=== PATIENT | male | born 1960 | race Caucasian/White ===

== ENCOUNTER 2017-01-11 06:46 | Emergency (ER) | END 2017-01-11 13:39 | disposition home or self-care (01) | DX: R20.0 Anesthesia of skin (principal); R40.2252 Coma scale, best verbal response, oriented, at arrival to emergency department; G62.9 Polyneuropathy, unspecified; I10 Essential (primary) hypertension; R93.7 Abnormal findings on diagnostic imaging of other parts of musculoskeletal system; R40.2142 Coma scale, eyes open, spontaneous, at arrival to emergency department; R40.2362 Coma scale, best motor response, obeys commands, at arrival to emergency department; R07.9 Chest pain, unspecified; Z87.891 Personal history of nicotine dependence | CPT/HCPCS: 36415; 70450; 71010; 72141; 72146; 80053; 80306; 80307; 83735; 84484; 85025; 85610; 85730; 93005; 96374; 99285; J2060 ==

== ENCOUNTER → 2017-02-01 | Outpatient (CLI) | payer BC ==
[~2017-02-01] MED LIST: AMLO5TAB4 PO; BENA10TA48 PO
[2017-02-01 09:19] LABS: BASOPHIL # 0.1 10^3/ul (0.0-0.1); BASOPHILS % 1.1 % (0.0-2.0); EOSINOPHILS # 0.1 10^3/ul (0.0-0.5); EOSINOPHILS % 1.5 % (0.0-7.0); HEMATOCRIT 47.5 % (42.0-52.0); HEMOGLOBIN 16.4 g/dl (14.0-18.0); LYMPHOCYTES # 1.6 10^3/ul (0.8-2.9); LYMPHOCYTES % 18.9 % (15.0-51.0); MEAN CORPUSCULAR HEMOGLOBIN 29.4 pg (29.0-33.0); MEAN CORPUSCULAR HGB CONC 34.5 g/dl (32.0-37.0); MEAN CORPUSCULAR VOLUME 85.3 fl (82.0-101.0); MEAN PLATELET VOLUME 9.4 fl (7.4-10.4); MONOCYTE # 0.5 10^3/ul (0.3-0.9); MONOCYTES % 6.2 % (0.0-11.0); NEUTROPHIL # 5.9 10^3/ul (1.6-7.5); NEUTROPHILS % 71.7 % (39.0-77.0); PLATELET COUNT 396 10^3/UL (140-415); RED BLOOD COUNT 5.57 10^6/ul (4.70-6.10); RED CELL DISTRIBUTION WIDTH 12.3 % (11.5-14.5); WHITE BLOOD COUNT 8.2 10^3/ul (4.8-10.8)
[2017-02-01 09:41] LABS: ALBUMIN/GLOBULIN RATIO 1.25; BILIRUBIN,INDIRECT 0.4 mg/dl (0-1.1); BILIRUBIN,TOTAL 0.4 mg/dl (0.2-1.3); CALCIUM 10.2 mg/dl (8.4-10.2); CREATININE 1.34 mg/dl (0.61-1.24)
[2017-02-01 09:50] LABS: POTASSIUM 5.7 mmol/L (3.5-5.1)
[2017-02-01 10:11] LABS: PROSTATE SPECIFIC ANTIGEN 70.1 ng/ml (0.0-4.0)
[2017-02-02 16:23] LABS: PSA, FREE 4.6 ng/mL
== END | disposition home or self-care (01) ==
LOC: LAB 08:15
PROVIDERS: ATTEND Urology
DX: R97.20 Elevated prostate specific antigen [PSA] (principal)
CPT/HCPCS: 80053; 84153; 84154; 85025

== ENCOUNTER → 2017-02-16 | Outpatient (CLI) | payer BC ==
--- NOTE | 2017-02-17 11:12 | RADRPT ---
PROCEDURE: Whole body bone scan study CLINICAL INDICATION: 56 -year-old patient with prostate cancer, for evaluation for skeletal metast ases. TECHNIQUE: Following the intravenous injection of 25.9 mCi of Tc-99m MDP, whole body anterior and posterior planar images were obtained along with spot views of the chest, abdomen and pelvis. COMPARISON: No prior bone scans are available for comparison. MRI of the cervical and thoracic spi ne dated January 11, 2017. FINDINGS: Slightly heterogeneous distribution of radionuclide is seen throughout the spine, which demonstrate a pattern most suggestive of degenerative changes. Mild symmetrical increased activity is also seen in both shoulders, which most likely represent dege nerative disease. No efinite abnormal areas of increased activity or asymmetries are visualized in the study and distr ibution of radionuclide is homogeneous in the skull, spine, rib cages, sternum, pelvis and visualize d portions of the upper and lower extremities. Of incidental note, there is no evidence of mass abnormalities of the kidneys. IMPRESSION: 1. No definite scintigraphic pattern to suggest the presence of skeletal metastases. 2. Likely degenerative changes of the spine and both shoulders. RPTAT: HH .Arti Zavaleta MD, Date Time Electronically viewed and signed by .Arti Zavaleta MD, on 02/17/2017 11:12 .L/
== END | disposition home or self-care (01) ==
LOC: NUC 16:29
PROVIDERS: ATTEND Internal Medicine Hematology & Oncology
DX: C61 Malignant neoplasm of prostate (principal)
CPT/HCPCS: 78306; A9503

== ENCOUNTER → 2017-05-10 | Outpatient (CLI) | payer BC ==
--- NOTE | 2017-05-10 15:31 | RADRPT ---
Echocardiogram Report Patient Name: DESIREE QUINTERO Gender: Male Date: 1960 Study Date: 10-May-2017 Application Penetration Tester: Yung Manriquez RDCS Location: EKG Ref. Physician: KEYON DANIELSON Quality: Adequate Procedures: Transthoracic echocardiogram with complete 2D, M-Mode, and doppler examination. Indications: Chest Pain, old [place]. 2D/M Mode Doppler Measurement Value Normal Ranges Measurement Value Normal Ranges LVIDd 2D 5.5 3.5 - 5.6 cm AV Peak Adelso 1.8 m/sec LVIDs 2D 3.6 2.1 - 4.1 cm AV Peak PG 13.0 mmHg LVPWd 2D 1.2 0.6 - 1.1 cm LVOT Peak PG 4.0 mmHg IVSd 2D 1.2 0.6 - 1.1 cm MV E Peak Adelso 5.6 m/sec AoR Diam 2D 2.8 2.0 - 3.7 cm MV A Peak Adelso 7.3 m/sec LA Dimen 2D 4.0 2.3 - 4.0 cm MV Decel Time 261 msec Lateral E` 8.7 m/sec Med E` Adelso 8.2 m/sec E/E` 6.4 TR Peak Adelso 2.6 m/sec TR Peak PG 27.0 mmHg RVSP 35.0 mmHg Findings Left Ventricle: Normal left ventricular systolic function. Normal left ventricular cavity size. Normal left ventricular wall thickness. Ejection fraction is visually estimated at 5560 %. Tissue Doppler/Mitral Doppler indices are consistent with impaired relaxation (Stage I diastolic dysfunction). Right Ventricle: Normal right ventricular size. Normal right ventricular systolic function. Left Atrium: The left atrium is normal in size. Right Atrium: The right atrium is normal in size. Mitral Valve: Normal appearance and function of the mitral valve with trace physiologic regurgitation. Aortic Valve: Normal appearance of the aortic valve. No significant aortic stenosis or insufficiency. Tricuspid Valve: Normal appearance of the tricuspid valve. Unable to obtain RVSP due to minimal presence of tricuspid regurgitation. Estimated peak PA systolic pressure mmHg. There is trace tricuspid regurgitation. Pulmonic Valve: Pulmonic valve not well visualized. There is trace pulmonic regurgitation. Pericardium: Normal pericardium with no significant pericardial effusion. Aorta: Normal aortic root. IVC: Normal size and normal respiratory collapse consistent with normal right atrial pressure. Conclusions Normal left ventricular systolic function. Normal left ventricular cavity size. Normal left ventricular wall thickness. Ejection fraction is visually estimated at 55-60 %. Tissue Doppler/Mitral Doppler indices are consistent with impaired relaxation (Stage I diastolic dysfunction). Normal right ventricular size. Normal right ventricular systolic function. The left atrium is normal in size. Normal appearance of the tricuspid valve. Unable to obtain RVSP due to minimal presence of tricuspid regurgitation. Estimated peak PA systolic pressure mmHg. There is trace tricuspid regurgitation. Normal appearance of the aortic valve. No significant aortic stenosis or insufficiency. Normal size and normal respiratory collapse consistent with normal right atrial pressure. No Vegetation, masses, or thrombi seen. Electronically Signed By: Keyon Danielson 10-May-2017 15:31:40 -0800 Patient Name: DESIREE QUINTERO Study Date: 10-May-2017 [id number]
--- NOTE | 2017-05-10 15:31 | RADRPT ---
Echocardiogram Report Patient Name: DESIREE QUINTERO Gender: Male Date: 1960 Study Date: 10-May-2017 Parachute Accessories Attacher: Yung Manriquez RDCS Location: EKG Ref. Physician: KEYON DANIELSON Quality: Adequate Procedures: Transthoracic echocardiogram with complete 2D, M-Mode, and doppler examination. Indications: Chest Pain, old [place]. 2D/M Mode Doppler Measurement Value Normal Ranges Measurement Value Normal Ranges LVIDd 2D 5.5 3.5 - 5.6 cm AV Peak Adelso 1.8 m/sec LVIDs 2D 3.6 2.1 - 4.1 cm AV Peak PG 13.0 mmHg LVPWd 2D 1.2 0.6 - 1.1 cm LVOT Peak PG 4.0 mmHg IVSd 2D 1.2 0.6 - 1.1 cm MV E Peak Adelso 5.6 m/sec AoR Diam 2D 2.8 2.0 - 3.7 cm MV A Peak Ad[place] 7.3 m/sec LA Dimen 2D 4.0 2.3 - 4.0 cm MV Decel Time 261 msec Lateral E` 8.7 m/sec Med E` Adelso 8.2 m/sec E/E` 6.4 TR Peak Adelso 2.6 m/sec TR Peak PG 27.0 mmHg RVSP 35.0 mmHg Findings Left Ventricle: Normal left ventricular systolic function. Normal left ventricular cavity size. Normal left ventricular wall thickness. Ejection fraction is visually estimated at 5560 %. Tissue Doppler/Mitral Doppler indices are consistent with impaired relaxation (Stage I diastolic dysfunction). Right Ventricle: Normal right ventricular size. Normal right ventricular systolic function. Left Atrium: The left atrium is normal in size. Right Atrium: The right atrium is normal in size. Mitral Valve: Normal appearance and function of the mitral valve with trace physiologic regurgitation. Aortic Valve: Normal appearance of the aortic valve. No significant aortic stenosis or insufficiency. Tricuspid Valve: Normal appearance of the tricuspid valve. Unable to obtain RVSP due to minimal presence of tricuspid regurgitation. Estimated peak PA systolic pressure mmHg. There is trace tricuspid regurgitation. Pulmonic Valve: Pulmonic valve not well visualized. There is trace pulmonic regurgitation. Pericardium: Normal pericardium with no significant pericardial effusion. Aorta: Normal aortic root. IVC: Normal size and normal respiratory collapse consistent with normal right atrial pressure. Conclusions Normal left ventricular systolic function. Normal left ventricular cavity size. Normal left ventricular wall thickness. Ejection fraction is visually estimated at 55-60 %. Tissue Doppler/Mitral Doppler indices are consistent with impaired relaxation (Stage I diastolic dysfunction). Normal right ventricular size. Normal right ventricular systolic function. The left atrium is normal in size. Normal appearance of the tricuspid valve. Unable to obtain RVSP due to minimal presence of tricuspid regurgitation. Estimated peak PA systolic pressure mmHg. There is trace tricuspid regurgitation. Normal appearance of the aortic valve. No significant aortic stenosis or insufficiency. Normal size and normal respiratory collapse consistent with normal right atrial pressure. No Vegetation, masses, or thrombi seen. Electronically Signed By: Keyon Danielson 10-May-2017 15:31:40 -0800 Patient Name: DESIREE QUINTERO Study Date: 10-May-2017 [id number]
--- NOTE | 2017-05-10 15:31 | RADRPT ---
Echocardiogram Report Patient Name: DESIREE QUINTERO Gender: Male Date: 1960 Study Date: 10-May-2017 Manager Disaster Recovery: Yung Manriquez RDCS Location: EKG Ref. Physician: KEYON DANIELSON Quality: Adequate Procedures: Transthoracic echocardiogram with complete 2D, M-Mode, and doppler examination. Indications: Chest Pain, old [place]. 2D/M Mode Doppler Measurement Value Normal Ranges Measurement Value Normal Ranges LVIDd 2D 5.5 3.5 - 5.6 cm AV Peak Adelso 1.8 m/sec LVIDs 2D 3.6 2.1 - 4.1 cm AV Peak PG 13.0 mmHg LVPWd 2D 1.2 0.6 - 1.1 cm LVOT Peak PG 4.0 mmHg IVSd 2D 1.2 0.6 - 1.1 cm MV E Peak Adelso 5.6 m/sec AoR Diam 2D 2.8 2.0 - 3.7 cm MV A Peak [place] 7.3 m/sec LA Dimen 2D 4.0 2.3 - 4.0 cm MV Decel Time 261 msec Lateral E` 8.7 m/sec Med E` Adel[place] 8.2 m/sec E/E` 6.4 TR Peak [place] 2.6 m/sec TR Peak PG 27.0 mmHg RVSP 35.0 mmHg Findings Left Ventricle: Normal left ventricular systolic function. Normal left ventricular cavity size. Normal left ventricular wall thickness. Ejection fraction is visually estimated at 5560 %. Tissue Doppler/Mitral Doppler indices are consistent with impaired relaxation (Stage I diastolic dysfunction). Right Ventricle: Normal right ventricular size. Normal right ventricular systolic function. Left Atrium: The left atrium is normal in size. Right Atrium: The right atrium is normal in size. Mitral Valve: Normal appearance and function of the mitral valve with trace physiologic regurgitation. Aortic Valve: Normal appearance of the aortic valve. No significant aortic stenosis or insufficiency. Tricuspid Valve: Normal appearance of the tricuspid valve. Unable to obtain RVSP due to minimal presence of tricuspid regurgitation. Estimated peak PA systolic pressure mmHg. There is trace tricuspid regurgitation. Pulmonic Valve: Pulmonic valve not well visualized. There is trace pulmonic regurgitation. Pericardium: Normal pericardium with no significant pericardial effusion. Aorta: Normal aortic root. IVC: Normal size and normal respiratory collapse consistent with normal right atrial pressure. Conclusions Normal left ventricular systolic function. Normal left ventricular cavity size. Normal left ventricular wall thickness. Ejection fraction is visually estimated at 55-60 %. Tissue Doppler/Mitral Doppler indices are consistent with impaired relaxation (Stage I diastolic dysfunction). Normal right ventricular size. Normal right ventricular systolic function. The left atrium is normal in size. Normal appearance of the tricuspid valve. Unable to obtain RVSP due to minimal presence of tricuspid regurgitation. Estimated peak PA systolic pressure mmHg. There is trace tricuspid regurgitation. Normal appearance of the aortic valve. No significant aortic stenosis or insufficiency. Normal size and normal respiratory collapse consistent with normal right atrial pressure. No Vegetation, masses, or thrombi seen. Electronically Signed By: Keyon Danielson 10-May-2017 15:31:40 -0800 Patient Name: DESIREE QUINTERO Study Date: 10-May-2017 [id number]
== END | disposition home or self-care (01) ==
LOC: EKG 11:01
PROVIDERS: ATTEND Internal Medicine Interventional Cardiology
DX: I42.9 Cardiomyopathy, unspecified (principal); R07.9 Chest pain, unspecified; I25.2 Old myocardial infarction
CPT/HCPCS: 93306

== ENCOUNTER 2018-01-09 22:43 | Emergency (ER) | END 2018-01-10 03:50 | disposition home or self-care (01) ==

== ENCOUNTER → 2018-08-16 | Outpatient (CLI) | payer BC ==
[~2018-08-16] MED LIST changes: +AMLO-147 PO; -AMLO5TAB4 PO; -BENA10TA48 PO; +BENA20TA4 PO; +HYDR25TA6 PO
== END | disposition home or self-care (01) ==
LOC: C/S 09:03
PROVIDERS: ATTEND Internal Medicine
DX: R91.1 Solitary pulmonary nodule (principal)
CPT/HCPCS: 71250

== ENCOUNTER 2019-04-18 09:03 | Emergency (ER) | payer BC, MEDICAID ==
[~2019-04-18] VITALS: Ht 172.7 cm; Wt 83.5 kg
[~2019-04-18 09:03] MED LIST changes: +GABA300C16 PO; +HYDR-4011 PO; +NAPR-985 PO
[2019-04-18 09:11] VITALS: BP 120/78; Ht 172.7 cm; Wt 83.5 kg
[2019-04-18 11:21] VITALS: PULSE 66; RESP 18
== END 2019-04-18 11:15 | disposition home or self-care (01) ==
LOC: FTE 09:03
DX: M54.12 Radiculopathy, cervical region (principal); I10 Essential (primary) hypertension; I25.2 Old myocardial infarction; F17.210 Nicotine dependence, cigarettes, uncomplicated; Z85.46 Personal history of malignant neoplasm of prostate
CPT/HCPCS: 72040; 73030; Z7502

== ENCOUNTER → 2019-04-25 | Outpatient (CLI) | payer MEDICAID | END | disposition home or self-care (01) | LOC: LAB 11:32 | PROVIDERS: ATTEND Internal Medicine | DX: C61 Malignant neoplasm of prostate (principal) | CPT/HCPCS: 80053; 80061; 81003; 84153; 84154; 84443; 85025 ==